=== PATIENT | female | born 1975 | race Caucasian/White ===

== ENCOUNTER 2016-09-01 22:33 | Emergency (ER) | payer MEDICAID ==
[~2016-09-01] VITALS: Ht 167.6 cm; Wt 55.3 kg
[2016-09-01 22:34] VITALS: BP 100/68
[2016-09-02] MEDS ORDERED: HYDR-3713 PO (21:27)
[2016-09-02] MEDS ORDERED: AMOX500C PO (21:27)
== END 2016-09-02 03:58 | disposition left against medical advice (07) ==
LOC: M ED 23:58
DX: K02.9 Dental caries, unspecified (principal); J06.9 Acute upper respiratory infection, unspecified; B34.9 Viral infection, unspecified; Z72.0 Tobacco use

== ENCOUNTER → 2016-09-02 | Emergency (ER) | payer MEDICAID ==
[~2016-09-02] VITALS: Ht 167.6 cm; Wt 55.3 kg
[~2016-09-02] MED LIST: AMOX500C PO; AMOXICILLIN 500 MG CAP PO ONE; HYDR-3713 PO; NORCO, ANEXSIA 5/325MG TABLET (HYDROcodone/ACETAMINOPHEN) PO ONE
[2016-09-02 20:31] VITALS: BP 120/77
== END | disposition home or self-care (01) ==
LOC: M ED 20:31
DX: K02.9 Dental caries, unspecified (principal); J06.9 Acute upper respiratory infection, unspecified; B34.9 Viral infection, unspecified; Z72.0 Tobacco use

== ENCOUNTER → 2016-09-21 | Emergency (ER) | payer MEDICAID ==
[~2016-09-21] VITALS: Ht 167.6 cm; Wt 59.0 kg
[~2016-09-21] MED LIST changes: +ALPRAZolam 0.25 MG TAB PO ONE; -AMOXICILLIN 500 MG CAP PO ONE; +HYDR25T PO; -NORCO, ANEXSIA 5/325MG TABLET (HYDROcodone/ACETAMINOPHEN) PO ONE
[2016-09-21 13:28] VITALS: BP 111/68
== END | disposition home or self-care (01) ==
LOC: M ED 13:30
DX: F43.0 Acute stress reaction (principal); F41.1 Generalized anxiety disorder; F32.9 Major depressive disorder, single episode, unspecified; F17.210 Nicotine dependence, cigarettes, uncomplicated

== ENCOUNTER → 2016-11-15 | Outpatient (CLI) | payer OTHER ==
[~2016-11-15] MED LIST changes: -ALPRAZolam 0.25 MG TAB PO ONE
[2016-11-15 13:59] LABS: BASO % 0.6 % (0.0-1.0); EOS # 0.2 K/mm3 (0.0-0.50); EOS % 2.4 % (0.0-3.0); LARGE UNSTAINED CELL # 0.1 K/mm3 (0.0-0.4); LARGE UNSTAINED CELL % 1.5 % (0.0-4.0); LYMPH # 1.6 K/mm3 (1.5-4.5); LYMPH % 23.4 % (24.0-44.0); MEAN CORPUSCULAR HEMOGLOBIN 31.2 pg (27.0-33.0); MEAN CORPUSCULAR HGB CONC 33.5 g/dl (32.0-36.5); MEAN CORPUSCULAR VOLUME 93.2 fl (80.0-96.0); MONO # 0.2 K/mm3 (0.0-0.8); MONO % 3.7 % (0.0-5.0); NEUTROPHILS # 4.3 K/mm3 (1.8-7.7); NEUTROPHILS % 68.5 % (36.0-66.0); PLATELET COUNT, AUTOMATED 262 k/mm3 (150-450); RED CELL DISTRIBUTION WIDTH 12.1 % (11.5-14.5); WHITE BLOOD COUNT 6.3 K/mm3 (4.0-10.0)
--- NOTE | 2016-11-15 14:15 | REP ---
Clinical: Cervicalgia. Technique: AP, lateral, open mouth views. Comparison: 03/06/2012. Findings: Alignment and lordosis maintained. No acute fracture / compression injury or subluxation. Minimal disc space narrowing at the C4-5 level noted along with chronic fractured anteroinferior osteophyte at the C5 level. Spinous processes are intact. Prevertebral soft tissues are normal. Impression: Mild disc space narrowing at the C4-5 level. Chronic fractured osteophyte at C5. Signed by Charlie Mondragon MD 11/15/2016 02:07 P
== END ==
LOC: M LAB 13:20
PROVIDERS: ATTEND Family Medicine Addiction Medicine
DX: M54.2 Cervicalgia (principal)

== ENCOUNTER 2016-12-22 19:21 | Inpatient (IN) | payer OTHER ==
[~2016-12-22] VITALS: Ht 167.6 cm; Wt 59.0 kg
[~2016-12-22 19:21] MED LIST changes: +HYDR-3363 PO; -HYDR25T PO
[2016-12-22] MEDS ORDERED: PROZ20CA11 PO (19:29)
[2016-12-22] MEDS ORDERED: MELO15TA4 PO (19:29)
[2016-12-22 21:45] LABS: MEAN CORPUSCULAR HEMOGLOBIN 32.8 pg (27.0-33.0); MEAN CORPUSCULAR HGB CONC 34.7 g/dl (32.0-36.5); MEAN CORPUSCULAR VOLUME 94.5 fl (80.0-96.0); RED CELL DISTRIBUTION WIDTH 12.4 % (11.5-14.5); WHITE BLOOD COUNT 5.4 K/mm3 (4.0-10.0)
[2016-12-22 21:53] LABS: METHADONE URINE NEGATIVE (NEGATIVE)
[2016-12-22 21:59] LABS: CONTROL LINE HCG INT CTR LINE PRESENT
[2016-12-22 22:14] LABS: ALBUMIN 4.2 GM/DL (3.2-5.2); ALBUMIN/GLOBULIN RATIO 1.35 (1.00-1.93); ALKALINE PHOSPHATASE 72 U/L (45-117); ALT/SGPT 16 U/L (12-78); ANION GAP 6 MEQ/L (8-16); AST/SGOT 30 U/L (15-37); BILIRUBIN,DIRECT 0.3 MG/DL (0.0-0.2); BILIRUBIN,TOTAL 1.1 MG/DL (0.2-1.0); BLOOD UREA NITROGEN 11 MG/DL (7-18); CALCIUM LEVEL 8.8 MG/DL (8.5-10.1); CARBON DIOXIDE LEVEL 28 MEQ/L (21-32); CHLORIDE LEVEL 107 MEQ/L (98-107); CREATININE FOR GFR 0.97 MG/DL (0.55-1.02); GLOMERULAR FILTRATION RATE > 60.0 (>58); GLUCOSE, FASTING 91 MG/DL (70-105); POTASSIUM SERUM 3.9 MEQ/L (3.5-5.1); SODIUM LEVEL 141 MEQ/L (136-145); TOTAL PROTEIN 7.3 GM/DL (6.4-8.2)
--- NOTE | 2016-12-23 05:48 | ECGEPIP ---
Stationary ECG Study [facility] - ED Test Date: 2016-12-22 Pat Name: YAIR MADDOX Department: Room: - Gender: F Press Assistant: JANET : 1975 Requested By: SUJATA Person Order Number: [id number] Reading MD: Eulalio Angulo Measurements Intervals [place] Rate: 68 P: 54 LA: 164 QRS: 74 QRSD: 89 T: 56 QT: 413 QTc: 441 Interpretive Statements SINUS RHYTHM Electronically Signed On 12-23-2016 5:47:42 EDT by Eulalio Angulo
[2016-12-23] MEDS ORDERED: FLUoxetine 20 MG CAP PO ONE (08:45)
[2016-12-23] MEDS: MELOXICAM (MOBIC) 7.5 MG TAB PO SCH (11:18)
[2016-12-23 17:53] VITALS: BP 105/70
[2016-12-23] MEDS ORDERED: MOM 30ML SUSPENSION UDC PO PRN (19:00)
[2016-12-23] MEDS ORDERED: ACETAMINOPHEN TAB 650MG DOSE (2X325MG) PO PRN (19:00)
[2016-12-23] MEDS ORDERED: MAALOX 30 ML SUSP *UDC PO PRN (19:00)
[2016-12-23] MEDS: traZODone 50 MG TAB PO PRN (21:25)
[2016-12-24 06:29] VITALS: BP 106/65
--- NOTE | 2016-12-24 08:43 | HPEPDOC ---
Medical History and Physical Date of Admission Dec 23, 2016 at 16:42 History and Physical PCP: [facility] ATTENDING: Dr. Juan Simmons HPI: 41yoF admitted to [facility] for Unspecified depressive disorder, being medically examined today. No acute medical complaints today. Patient states she has chronic neck pain however this is controlled with meloxicam. Denies any fevers, chills, weakness, fatigue, MADRID, CP, SOB, cough, palpitations, abdominal pain, N/V/D or changes in bowel or bladder habits. PMHx: depression chronic neck pain XR C spine 11/15/16 Mild disc space narrowing at the C4-5 level. Chronic fractured osteophyte at C5 PSHX: tubal ligation SOCHX: Resides in: [facility] Marital Status: Single Kids: 2 children Employment: Part-time at [employer] Tobacco use: One pack per day ETOH: Denies Illicit Drugs: Cocaine monthly, marijuana monthly IV Drug Use: Denies Tattoos done unprofessionally: Denies FAMHX: Mother: Alive, history of depression, bipolar disorder, diabetes Father: Alive, unknown Siblings: Alive, well Children: Alive, history of depression Unexpected deaths due to medical reasons: None. ROS: As noted in HPI, otherwise 11pt ROS of systems reviewed and remarkable only for LMP unknown. PE: GEN: 41yoF, appears stated age. Well-nourished, well developed. No acute distress. Alert and oriented x 3. Anxious during exam. HEENT: Normocephalic, atraumatic. Pupils are equal, round, and reactive to light. Extraocular movements are intact. No nystagmus appreciated. Sclera are nonicteric. Conjunctiva without injection. Nose midline. Nasal turbinates without bogginess. EACs both patent BL. TMs both visualized and augustin with good cone of light, no bulging or erythema. No facial asymmetry. Moist mucous membranes. Dentition fair. Pharynx pink and moist, no cobblestoning. Neck supple , trachea midline. No lymphadenopathy or thyromegaly appreciated. CHEST: Regular rate and rhythm, +S1, +S2 LUNGS: Clear to auscultation bilaterally. No wheezes, rales, or rhonchi. Breathing appears symmetric and easy. Patient is speaking in full sentences. No accessory muscle use. ABD: Round, soft, non-tender, non-distended. +Bowel sounds throughout. No rebound or guarding. No costovertebral angle tenderness. EXT: Pulses 2+ bilaterally dorsalis pedis and radial. No lower extremity edema appreciated. SKIN: [place], dry, warm. Capillary refill <2sec. No rashes. NEURO: Alert and oriented x 3. Cranial nerves III-XII are intact. No focal deficits appreciated. EK12/23/16 SINUS RHYTHM 68 bpm. A&P: 41yoF admitted to [facility] for Unspecified depressive disorder 1. Psych. Plan per Psychiatry. EKG on file. 2. Nicotine dependence. Patch available. 3. Follow up with PCP on discharge. 4. Substance use. Per psychiatry. 5. Chronic Neck pain. Continue with meloxicam 15 mg daily. Patient states pain is controlled. 6. Staff member Lala present throughout exam. Vital Signs Vital Signs Date Time Temp Pulse Resp B/P (MAP) Pulse Ox O2 Delivery O2 Flow Rate FiO2 12/24/16 06:29 96.5 59 16 106/65 (79) 12/23/16 17:24 96 Room Air Laboratory Data Labs 24H Item Value Date Time White Blood Count 5.4 K/mm3 12/22/162113 Red Blood Count 4.26 M/mm3 12/22/162113 Hemoglobin 14.0 g/dl 12/22/162113 Hematocrit 40.3 % 12/22/162113 Mean Corpuscular Volume 94.5 fl 12/22/162113 Mean Corpuscular Hemoglobin 32.8 pg 12/22/162113 Mean Corpuscular Hemoglobin Concent 34.7 g/dl 12/22/162113 Red Cell Distribution Width 12.4 % 12/22/162113 Platelet Count 280 k/mm3 12/22/162113 Sodium Level 141 MEQ/L 12/22/162113 Potassium Level 3.9 MEQ/L 12/22/162113 Chloride Level 107 MEQ/L 12/22/162113 Carbon Dioxide Level 28 MEQ/L 12/22/162113 Anion Gap 6 MEQ/L L 12/22/162113 Blood Urea Nitrogen 11 MG/DL 12/22/162113 Creatinine 0.97 MG/DL 12/22/162113 Glomerular Filtration Rate > 60.0 12/22/162113 Fasting Glucose 91 MG/DL 12/22/162113 Calcium Level 8.8 MG/DL 12/22/162113 Total Bilirubin 1.1 MG/DL H 12/22/162113 Direct Bilirubin 0.3 MG/DL H 12/22/162113 Aspartate Amino Transf (AST/SGOT) 30 U/L 12/22/162113 Alanine Aminotransferase (ALT/SGPT) 16 U/L 12/22/162113 Alkaline Phosphatase 72 U/L 12/22/162113 Total Protein 7.3 GM/DL 12/22/162113 Albumin 4.2 GM/DL 12/22/162113 Albumin/Globulin Ratio 1.35 12/22/162113 Thyroid Stimulating Hormone (TSH) 0.767 uIU/ML 12/22/162113 Human Chorionic Gonadotropin, Qual NEGATIVE 12/22/162113 Salicylates Level < 1.7 MG/DL L 12/22/162113 Urine Opiates Screen NEGATIVE 12/22/162113 Urine Methadone Screen NEGATIVE 12/22/162113 Acetaminophen Level < 2.0 UG/ML L 12/22/162113 Urine Barbiturates Screen NEGATIVE 12/22/162113 Urine Phencyclidine Screen NEGATIVE 12/22/162113 Urine Amphetamines Screen NEGATIVE 12/22/162113 Urine Benzodiazepines Screen NEGATIVE 12/22/162113 Urine Cocaine Metabolite Screen POSITIVE H 12/22/162113 Urine Cannabinoids Screen POSITIVE H 12/22/162113 Ethyl Alcohol Level < 0.003 % 12/22/162113 Home Medications Scheduled Fluoxetine HCl (Prozac) 20 Mg Cap, 20 MG PO DAILY Meloxicam (Meloxicam) 15 Mg Tab, 15 MG PO DAILY Allergies Coded Allergies: No Known Allergies (Unverified , 09/01/16) Janett Hernandez Dec 24, 2016 08:43
[2016-12-24] MEDS: MELOXICAM (MOBIC) 7.5 MG TAB PO SCH (08:57)
[2016-12-24] MEDS: SERTRALINE HCL 25 MG TABLET PO SCH (12:04)
[2016-12-24] MEDS: HALOPERIDOL 5 MG TAB PO PRN (12:19)
[2016-12-24] MEDS: NICOTINE 21MG/24HR 1 EA TRANSDERMAL TD SCH (17:03)
[2016-12-24 18:13] VITALS: BP 103/58
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
[2016-12-24] MEDS: LORazepam 1 MG TAB PO PRN (21:15)
[2016-12-25 06:31] VITALS: BP 101/56
[2016-12-25] MEDS: SERTRALINE HCL 25 MG TABLET PO SCH (08:38)
[2016-12-25] MEDS: MELOXICAM (MOBIC) 7.5 MG TAB PO SCH (08:38)
[2016-12-25] MEDS: NICOTINE 21MG/24HR 1 EA TRANSDERMAL TD SCH (08:39)
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
[2016-12-25 18:06] VITALS: BP 100/61
[2016-12-25] MEDS: LORazepam 1 MG TAB PO PRN (20:24)
[2016-12-26 06:38] VITALS: BP 144/69
[2016-12-26] MEDS: NICOTINE 21MG/24HR 1 EA TRANSDERMAL TD SCH (08:27)
[2016-12-26] MEDS: MELOXICAM (MOBIC) 7.5 MG TAB PO SCH (08:27)
[2016-12-26] MEDS: SERTRALINE HCL 25 MG TABLET PO SCH (08:27)
[2016-12-26] MEDS: HALOPERIDOL 5 MG TAB PO PRN (10:08)
[2016-12-26 18:00] VITALS: BP 97/59
[2016-12-26] MEDS: traZODone 50 MG TAB PO PRN (20:15)
[2016-12-26] MEDS: LORazepam 1 MG TAB PO PRN (20:15)
--- NOTE | 2016-12-26 21:10 | MHIPNPDOC ---
[facility] Progress Note Progress Note DATE OF SERVICE: 12/26/16 Medication Side effects: Denies.Says shes having a good response to medications. Behavior: Continues to be avoidant, a little isolated but is not violent, nor aggressive. Group Attendance: Irregular group attendance Psychiatric Symptom change: She says she feels better and she looks better, less anxious, but shes still hypervigilant and irritable. VITAL SIGNS: See below. NEW TEST RESULTS: MENTAL STATUS EXAMINATION: General: disheveled Speech: normal, fluid, articulate."" Thought processes: circumstantial Thought content: Coherent Abstract reasoning, and computation: Fair Description of associations: Not loose Description of abnormal or psychotic thoughts: Denies thought delusions, denies auditory or visual hallucinations, denies suicidal or homicidal ideation Judgment: Poor Insight: Poor Orientation: alert and oriented x" 3 Recent and remote memory: Some short memory loss Attention span and concentration: intact Fund of knowledge: adequate Mood: "Better" Affect: Less anxious and less depressed DIAGNOSES: 1. PTSD, severe, acute exacerbation 2. Dissociative characteristics with possible dissociative identity disorder CURRENT MEDICATIONS: See below. ASSESSMENT: Patient is having a good response to treatment but is seeking to be discharged because wants to be with daughter who is having a republican soon. MANAGEMENT PLAN: Medications: Continues to be on Zoloft 25 mg by mouth dailybecause she is sensitive to medication and has been more anxious when she has been on Prozac, even when the dose has not been high, haloperidol 5 mg by mouth every 6 hours when necessary for anxiety or agitation, lorazepam 1 mg by mouth every 6 hours when necessary for anxiety or agitation and trazodone 50 mg by mouth daily at bedtime when necessary for insomnia Psychotherapy: Is attending some groups Social: She wants to be discharged to help her daughter with a republican, a homecoming republican. Misc: -- Disposition: Patient is to continue at the inpatient mental health unit until her PTSD symptoms decrease. TIME SPENT: 30 minutes. Vital Signs Vital Signs Date Time Temp Pulse Resp B/P (MAP) Pulse Ox O2 Delivery O2 Flow Rate FiO2 12/26/16 18:00 101.1 86 16 97/59 (72) 12/23/16 17:24 96 Room Air Current Medications Current Medications Acetaminophen (Tylenol Tab) 650 mg Q6HP PRN PO HEADACHE or DISCOMFORT Last administered on 12/26/16 15:20; Start 12/23/16 at 19:00; Stop 01/22/17 at 18:59 Al Hydrox/Mg Hydrox/Simethicone (Mylanta) 30 ml Q4HP PRN PO HEARTBURN/ INDIGESTION; Start 12/23/16 at 19:00; Stop 01/22/17 at 18:59 Haloperidol (Haldol) 5 mg Q6HP PRN PO ANXIETY/AGITATION Last administered on 10:08; Start 12/23/16 at 19:00; Stop 01/22/17 at 18:59 Home Med (Med Rec Complete!) ASDIRECTED XX ; Start 12/23/16 at 09:30; Stop at 09:31; Status DC Lorazepam (Ativan) 1 mg Q6HP PRN PO ANXIETY/AGITATION Last administered on 12/26 20:15; Start 12/23/16 at 19:00; Stop 12/30/16 at 18:59 Magnesium Hydroxide (Milk Of Magnesia) 30 ml DAILYPRN PRN PO CONSTIPATION; Start 12/23/16 at 19:00; Stop 01/22/17 at 18:59 Meloxicam (Mobic) 15 mg DAILY PO Last administered on 12/26/16 08:27; Start at 09:00; Stop 01/22/17 at 08:59 Nicotine (Nicoderm Cq 21mg) 1 patch DAILY TD Last administered on 12/26/16 08: 27; Start 12/24/16 at 09:00; Stop 01/23/17 at 08:59 Sertraline HCl (Zoloft) 25 mg DAILY PO Last administered on 12/26/16 08:27; Start 12/24/16 at 09:00; Stop 01/23/17 at 08:59 Trazodone HCl (Desyrel) 50 mg QHSP PRN PO INSOMNIA Last administered on 20:15; Start 12/23/16 at 19:00; Stop 01/22/17 at 18:59 Allergies Coded Allergies: No Known Allergies (Unverified , 09/01/16) SONNY WILSON MD Dec 26, 2016 21:10
[2016-12-27 06:00] VITALS: BP 100/60
[2016-12-27] MEDS: NICOTINE 21MG/24HR 1 EA TRANSDERMAL TD SCH (09:51)
[2016-12-27] MEDS: MELOXICAM (MOBIC) 7.5 MG TAB PO SCH (09:51)
[2016-12-27] MEDS: SERTRALINE HCL 25 MG TABLET PO SCH (09:51)
[2016-12-27] MEDS: HALOPERIDOL 5 MG TAB PO PRN (14:17)
[2016-12-27 18:18] VITALS: BP 102/63
[2016-12-27] MEDS: LORazepam 1 MG TAB PO PRN (21:02)
[2016-12-27] MEDS: traZODone 50 MG TAB PO PRN (21:02)
--- NOTE | 2016-12-27 21:07 | MHIPNPDOC ---
[facility] Progress Note Progress Note DATE OF SERVICE: 12/27/16 DATE OF SERVICE: 12/26/16 Medication Side effects: Denies medication side effects. Behavior: Avoidant, a little isolated Group Attendance: Irregular group attendance Psychiatric Symptom change: Less anxious and less depressed. VITAL SIGNS: See below. NEW TEST RESULTS: MENTAL STATUS EXAMINATION: General: disheveled, poor hygiene Speech: Coherent Thought processes: Intact Thought content: Coherent Abstract reasoning, and computation: Fair Description of associations: Not loose Description of abnormal or psychotic thoughts: Denies thought delusions, denies auditory or visual hallucinations, denies suicidal or homicidal ideation Judgment: Poor Insight: Poor Orientation: alert and oriented x" 3 Recent and remote memory: Continues to exhibit some short memory loss Attention span and concentration: intact Fund of knowledge: adequate Mood: "Better" Affect: Less anxious and less depressed DIAGNOSES: 1. PTSD, severe, acute exacerbation 2. Dissociative characteristics with possible dissociative identity disorder CURRENT MEDICATIONS: See below. ASSESSMENT: Good response to treatment. Possible discharge on Friday if pt. signs a ROULA for us to speak with family about social/family support. MANAGEMENT PLAN: Medications: Zoloft was increased to 50 mgs. today Psychotherapy: Is attending some groups Social: She needs to interact with other people. Misc: -- Disposition: Possible discharge on Friday if she signs ROULA for us to speak with family/boyfriend regarding safety issues and adequate support. TIME SPENT: 30 minutes. Vital Signs Vital Signs Vital Signs Date Time Temp Pulse Resp B/P (MAP) Pulse Ox O2 Delivery O2 Flow Rate FiO2 12/27/16 18:18 98.9 88 16 102/63 (76) 12/23/16 17:24 96 Room Air Current Medications Current Medications Acetaminophen (Tylenol Tab) 650 mg Q6HP PRN PO HEADACHE or DISCOMFORT Last administered on 12/26/16 15:20; Start 12/23/16 at 19:00; Stop 01/22/17 at 18:59 Al Hydrox/Mg Hydrox/Simethicone (Mylanta) 30 ml Q4HP PRN PO HEARTBURN/ INDIGESTION; Start 12/23/16 at 19:00; Stop 01/22/17 at 18:59 Haloperidol (Haldol) 5 mg Q6HP PRN PO ANXIETY/AGITATION Last administered on 14:17; Start 12/23/16 at 19:00; Stop 01/22/17 at 18:59 Home Med (Med Rec Complete!) ASDIRECTED XX ; Start 12/23/16 at 09:30; Stop at 09:31; Status DC Lorazepam (Ativan) 1 mg Q6HP PRN PO ANXIETY/AGITATION Last administered on 12/26 20:15; Start 12/23/16 at 19:00; Stop 12/30/16 at 18:59 Magnesium Hydroxide (Milk Of Magnesia) 30 ml DAILYPRN PRN PO CONSTIPATION; Start 12/23/16 at 19:00; Stop 01/22/17 at 18:59 Meloxicam (Mobic) 15 mg DAILY PO Last administered on 12/27/16 09:51; Start at 09:00; Stop 01/22/17 at 08:59 Nicotine (Nicoderm Cq 21mg) 1 patch DAILY TD Last administered on 12/27/16 09: 51; Start 12/24/16 at 09:00; Stop 01/23/17 at 08:59 Sertraline HCl (Zoloft) 25 mg DAILY PO Last administered on 12/27/16 09:51; Start 12/24/16 at 09:00; Stop 12/27/16 at 13:06; Status DC Sertraline HCl (Zoloft) 50 mg DAILY PO ; Start 12/28/16 at 09:00; Stop 01/27/17 at 08:59 Trazodone HCl (Desyrel) 50 mg QHSP PRN PO INSOMNIA Last administered on 20:15; Start 12/23/16 at 19:00; Stop 01/22/17 at 18:59 Allergies Coded Allergies: Fluoxetine (Unverified Adverse Reaction, Intermediate, Suicidal ideation, 12/27/16) Developed suicidal ideation while taking which diminished when taken off Prozac. SONNY WILSON MD Dec 27, 2016 21:07
[2016-12-28 06:15] VITALS: BP 121/62
[2016-12-28] MEDS: MELOXICAM (MOBIC) 7.5 MG TAB PO SCH (09:06)
[2016-12-28] MEDS: SERTRALINE HCL 50 MG TAB PO SCH (09:06)
[2016-12-28] MEDS: NICOTINE 21MG/24HR 1 EA TRANSDERMAL TD SCH (09:07)
[2016-12-28] MEDS: HALOPERIDOL 5 MG TAB PO PRN (11:47)
[2016-12-28 18:00] VITALS: BP 102/60
[2016-12-29 06:16] VITALS: BP 119/61
[2016-12-29] MEDS: MELOXICAM (MOBIC) 7.5 MG TAB PO SCH (09:06)
[2016-12-29] MEDS: SERTRALINE HCL 50 MG TAB PO SCH (09:06)
[2016-12-29] MEDS: NICOTINE 21MG/24HR 1 EA TRANSDERMAL TD SCH (09:06)
[2016-12-29] MEDS: LORazepam 1 MG TAB PO PRN ×2 (11:53→18:37)
[2016-12-29 18:40] VITALS: BP 102/71
[2016-12-29] MEDS: traZODone 50 MG TAB PO PRN (21:44)
[2016-12-29] MEDS: HALOPERIDOL 5 MG TAB PO PRN (21:44)
[2016-12-30 06:39] VITALS: BP 100/55
[2016-12-30] MEDS: NICOTINE 21MG/24HR 1 EA TRANSDERMAL TD SCH (09:21)
[2016-12-30] MEDS: SERTRALINE HCL 50 MG TAB PO SCH (09:21)
[2016-12-30] MEDS: HALOPERIDOL 5 MG TAB PO PRN (09:21)
[2016-12-30] MEDS: MELOXICAM (MOBIC) 7.5 MG TAB PO SCH (09:21)
[2016-12-30] MEDS ORDERED: SERT50TA PO (09:45)
[2016-12-30] MEDS ORDERED: TRAZO50TA PO (09:45)
[2016-12-30] MEDS ORDERED: LORA1TAB12 PO (09:47)
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
== END 2016-12-30 11:40 | disposition home or self-care (01) | DRG 755 ==
LOC: M ED 21:57 → M ED INP 12-23 16:42 → M PSY 12-23 17:43
PROVIDERS: ADMIT Psychiatry & Neurology Psychiatry; ATTEND Psychiatry & Neurology Psychiatry
DX: F43.11 Post-traumatic stress disorder, acute (principal); F14.10 Cocaine abuse, uncomplicated; F17.210 Nicotine dependence, cigarettes, uncomplicated; F44.81 Dissociative identity disorder; M54.2 Cervicalgia; Z62.810 Personal history of physical and sexual abuse in childhood; Z91.410 Personal history of adult physical and sexual abuse; Z81.8 Family history of other mental and behavioral disorders; Z79.899 Other long term (current) drug therapy; Z88.8 Allergy status to other drugs, medicaments and biological substances

== ENCOUNTER 2017-01-05 13:01 | Emergency (ER) | payer OTHER ==
[~2017-01-05] VITALS: Ht 167.6 cm; Wt 56.2 kg
[~2017-01-05 13:01] MED LIST changes: +LORA1TAB12 PO; +MELO15TA4 PO; +PROZ20CA11 PO; +SERT50TA PO; +TRAZO50TA PO
[2017-01-05] MEDS ORDERED: KETOROLAC 60 MG/2 ML VIAL (J1885) IM ONE (14:45)
[2017-01-05] MEDS ORDERED: ACETAMINOPHEN 325 MG TAB PO ONE (14:45)
[2017-01-05] MEDS ORDERED: CYCLOBENZAPRINE 5MG TABLET PO ONE (15:00)
[2017-01-05] MEDS ORDERED: CYCLOBENZAPRINE 10 MG TAB PO ONE (15:00)
--- NOTE | 2017-01-05 15:17 | REP ---
Clinical: Neck pain. Technique: AP, lateral, open mouth views. Comparison: 11/15/2016, 03/06/2012. Findings: Alignment and lordosis maintained. No acute fracture / compression injury or subluxation. Fractured anterior inferior osteophyte at the C5 level is unchanged. Endplate sclerosis and minimal disc space narrowing at the C4-5 and C5-6 levels suggested. Spinous processes are intact. Prevertebral soft tissues are normal. C1-C2 articulation and odontoid process are normal. Impression: Mild degenerative changes. Signed by Charlie Mondragon MD 01/05/2017 03:08 P
[2017-01-05] MEDS ORDERED: NAPR500T3 PO (15:40)
[2017-01-05] MEDS ORDERED: TYLE325T5 PO (15:43)
[2017-01-05 15:45] VITALS: BP 104/75
[2017-01-05] MEDS ORDERED: CYCL5TAB PO (15:45)
== END 2017-01-05 15:56 | disposition home or self-care (01) ==
LOC: M ED 13:01
DX: M54.2 Cervicalgia (principal); F41.9 Anxiety disorder, unspecified; F32.9 Major depressive disorder, single episode, unspecified; F43.10 Post-traumatic stress disorder, unspecified; Z79.899 Other long term (current) drug therapy; Z88.8 Allergy status to other drugs, medicaments and biological substances; F17.200 Nicotine dependence, unspecified, uncomplicated

== ENCOUNTER → 2017-02-11 | Outpatient (REF) | payer OTHER ==
[~2017-02-11] MED LIST changes: +CYCL5TAB PO; +NAPR500T3 PO; +TYLE325T5 PO
[2017-02-11 18:46] LABS: ALBUMIN 3.8 GM/DL (3.2-5.2); ALBUMIN/GLOBULIN RATIO 1.23 (1.00-1.93); ALKALINE PHOSPHATASE 76 U/L (45-117); ALT/SGPT 39 U/L (12-78); ANION GAP 8 MEQ/L (8-16); AST/SGOT 44 U/L (15-37); BILIRUBIN,TOTAL 0.4 MG/DL (0.2-1.0); BLOOD UREA NITROGEN 17 MG/DL (7-18); CALCIUM LEVEL 8.3 MG/DL (8.5-10.1); CARBON DIOXIDE LEVEL 22 MEQ/L (21-32); CHLORIDE LEVEL 114 MEQ/L (98-107); CREATININE FOR GFR 0.83 MG/DL (0.55-1.02); GLOMERULAR FILTRATION RATE > 60.0 (>58); GLUCOSE, FASTING 86 MG/DL (70-105); POTASSIUM SERUM 4.4 MEQ/L (3.5-5.1); SODIUM LEVEL 144 MEQ/L (136-145); TOTAL PROTEIN 6.9 GM/DL (6.4-8.2)
== END ==
LOC: M LAB REF 16:34
PROVIDERS: ATTEND Family Medicine Addiction Medicine
DX: R63.2 Polyphagia (principal)

== ENCOUNTER → 2017-07-01 | Outpatient (CLI) | payer OTHER | LOC: M RAD 13:55 | DX: M47.812 Spondylosis without myelopathy or radiculopathy, cervical region (principal); M79.1 Myalgia | CPT/HCPCS: 72141 ==

== ENCOUNTER → 2017-08-08 | Outpatient (REF) | payer OTHER | LOC: M LAB REF 19:01 | DX: K29.00 Acute gastritis without bleeding (principal) | CPT/HCPCS: 87070 ==

== ENCOUNTER → 2017-08-09 | Outpatient (CLI) | payer OTHER ==
[2017-08-09 18:38] LABS: ALBUMIN/GLOBULIN RATIO 1.29 (1.00-1.93); ALKALINE PHOSPHATASE 65 U/L (45-117); ALT/SGPT 11 U/L (12-78); ANION GAP 6 MEQ/L (8-16); AST/SGOT 19 U/L (7-37); BILIRUBIN,DIRECT 0.1 MG/DL (0.0-0.2); BILIRUBIN,TOTAL 0.6 MG/DL (0.2-1.0); BLOOD UREA NITROGEN 7 MG/DL (7-18); CALCIUM LEVEL 8.5 MG/DL (8.5-10.1); CARBON DIOXIDE LEVEL 28 MEQ/L (21-32); CHLORIDE LEVEL 107 MEQ/L (98-107); CREATININE FOR GFR 1.07 MG/DL (0.55-1.30); GLOMERULAR FILTRATION RATE > 60.0 (>58); GLUCOSE, FASTING 122 MG/DL (70-100); POTASSIUM SERUM 3.9 MEQ/L (3.5-5.1); SODIUM LEVEL 141 MEQ/L (136-145); TOTAL PROTEIN 7.1 GM/DL (6.4-8.2)
[2017-08-09 19:05] LABS: BASO # 0.1 10^3/uL (0.0-0.2); BASO % 0.8 % (0.0-1.0); EOS # 0.2 10^3/uL (0.0-0.50); EOS % 3.1 % (0.0-3.0); HEMATOCRIT 39.4 % (36.0-47.0); HEMOGLOBIN 12.7 g/dl (12.0-16.0); IMMATURE GRANULOCYTE % 0.3 % (0-3.0); LYMPH # 2.2 10^3/uL (1.5-4.5); MEAN CORPUSCULAR HEMOGLOBIN 28.9 pg (27.0-33.0); MEAN CORPUSCULAR HGB CONC 32.2 g/dl (32.0-36.5); MEAN CORPUSCULAR VOLUME 89.5 fl (80.0-96.0); MONO # 0.4 10^3/uL (0.0-0.8); MONO % 5.2 % (0.0-5.0); NEUTROPHILS # 4.2 10^3/uL (1.8-7.7); NEUTROPHILS % 59.6 % (36.0-66.0); PLATELET COUNT, AUTOMATED 301 10^3/uL (150-450); RED CELL DISTRIBUTION WIDTH 13.1 % (11.5-14.5); WHITE BLOOD COUNT 7.1 10^3/uL (4.0-10.0)
[2017-08-11 10:42] LABS: HEPATITIS B SURFACE ANTIGEN NEGATIVE (NEGATIVE)
[2017-08-11 11:09] LABS: HEPATITIS C VIRUS ABY INDEX < 0.0 INDEX (<0.8)
[2017-08-11 11:10] LABS: HEPATITIS B CORE ANTIBODY IGM NEGATIVE (NEGATIVE)
[2017-08-11 11:11] LABS: HEPATITIS A ANTIBODY IGM NEGATIVE (NEGATIVE)
== END ==
LOC: M WUC 14:54
DX: K29.00 Acute gastritis without bleeding (principal)
CPT/HCPCS: 82248